=== PATIENT | female | born 1930 | race Caucasian/White ===

== ENCOUNTER → 2017-07-07 | Outpatient (CLI) | payer MEDICARE ==
[~2017-07-07] MED LIST: ASPI325; CALCAVITD PO; CELE100 PO; CLON.1TP; DIGO.125 PO; DIGO.25; FISH1000 PO; LOSA25 PO; MULVITA; SIMV10 PO; SOLI5 PO; TAMO10; WARF2.5 PO
== END ==
LOC: LAB EV 16:23 → LAB SHORT 16:23
DX: R35.0 Frequency of micturition (principal)
CPT/HCPCS: 87077; 87086; 87186

== ENCOUNTER 2019-12-12 10:04 | Day surgery (SDC) | payer MEDICARE ==
[~2019-12-12] VITALS: Ht 162.6 cm; Wt 59.0 kg
[~2019-12-12 10:04] MED LIST changes: +FOLI400 PO; +FURO20 PO; +LISI20 PO; +METO25ER PO; +METTREX2.5 PO; +Oxybutynin Chlo10 MG PO; +POTA10T PO
[2019-12-12] MEDS ORDERED: CLOB.05TO TOP (10:51)
[2019-12-12] MEDS ORDERED: Desowen60 GM TOP (10:52)
[2019-12-12] MEDS ORDERED: CALCIUM CIT 311 EACH PO (10:52)
--- NOTE | 2019-12-13 02:23 | NUR ---
PHYSICIAN NOTIFIED PHYSICIAN CALLED D/T NO PROPHYLACTIC ABX ORDERED FOR PT POST OP. PT'S PLAN WAS TO CONTINUE PROPHYLACTIC ABX FOR 24 HOURS. CONFIRMED THE ABX SCHEDULE WITH PHYSICIAN. PHYSICIAN CONFIRMED TO HAVE NO ABX ORDERED FOR PT 24 HRS POST OP.
--- NOTE | 2019-12-13 06:17 | NUR ---
SHIFT SUMMARY PT SLEPT T/O SHIFT. PT ABLE TO AMBULATE WITH SBA TO BATHROOM WITH WALKER. SURGICAL SITE DRESSING CLEAN DRY AND INTACT. PT REPORTS MINIMAL PAIN AT INSERTION SITE. OXYGEN SATURATION ABOVE 92% ON RA. HR STABLE/PACED IN 60'S TO 70'S. BP STABLE. PT REPORTS NO CP OR PRESSURE. WILL CONTINUE TO MONITOR UNTIL REPORT GIVEN TO DAYSHIFT RN.
--- NOTE | 2019-12-13 10:14 | NUR ---
Dr. Danielson here to see the patient. Pressure dressing was removed by the tape machine tailer. Steristrips noted intact over the surgical site, no bruising, no excessive swelling. Scant amount of dried blood noted on the strips, no active drainage or bleeding. PT states no pain at the site. Dr. Danielson dressed the site with non adherent dressing and secured it with medipore tape. Pt is up sitting in the chair. New orders received for Vancomycin IVPB before discharge. Dr. Danielson states that chest xray was reviewed by him, and patient is able to be discharged after the vacomycin infusion is complete.
--- NOTE | 2019-12-13 10:41 | NUR ---
ASSUMING CARE OF PT, RECEIVED REPORT FROM LISA SAHU. PT REPORTS GOOD REST T/OUT THE NIGHT, DENIES PAIN OR SOB. PACEMAKER HAS BEEN INTERPRETED, REPEAT IMAGING COMPLETE. PT TO RECEIVE LAST DOSE IV ABX, THEN DC HOME IN GOOD CONDITION.
--- NOTE | 2019-12-13 11:13 | NUR ---
Patient is sitting on a chair and alert. Patient immediately tells me about her medical history, her surgery and her recovery. Patient proceeds to tell me about her family, her jorgito and her hopes for new energy after the installation of the pacemaker. Patient shows no signs of spiritula distress but is easily encouraged by conversation centered around God and her family. I provide therapuetic listening and prayer. Patient responds well and displays evidence of an elevated mood. I will continue to remain available to patient and family.
== END 2019-12-13 12:38 | disposition home or self-care (01) ==
LOC: MHTC 10:04 → PCU 13:51 → MHTC 12-13 12:38
DX: I49.5 Sick sinus syndrome (principal); I48.21 Permanent atrial fibrillation; E78.5 Hyperlipidemia, unspecified; I27.20 Pulmonary hypertension, unspecified; I08.1 Rheumatic disorders of both mitral and tricuspid valves; I48.20 Chronic atrial fibrillation, unspecified; I11.9 Hypertensive heart disease without heart failure; D56.3 Thalassemia minor; Z85.3 Personal history of malignant neoplasm of breast; Z92.3 Personal history of irradiation; Z88.5 Allergy status to narcotic agent; Z88.0 Allergy status to penicillin; Z79.01 Long term (current) use of anticoagulants; Z79.899 Other long term (current) drug therapy
CPT/HCPCS: 33207; 33208; 33227; 71045; 71046; 99152; 99153; C1781; C1785; C1894; C1898; J1644; J2250; J3010; J3370; J7040